=== PATIENT | female | born 1945 | race Caucasian/White ===

== ENCOUNTER 2019-08-23 10:00 | Inpatient (IN) | payer OTHER ==
[~2019-08-23] VITALS: Ht 162.6 cm; Wt 61.2 kg
[~2019-08-23 10:00] MED LIST: CHILDREN'S ASPI81 MG PO; CRESTOR20 MG; FOSAMAX70 MG
[2019-08-27] MEDS ORDERED: PANTOPRAZOLE SO40 MG PO (10:37)
[2019-08-30] MEDS ORDERED: INTESTINEX680 M1 PO (16:22)
[2019-08-30] MEDS ORDERED: PERCOCET 5-3251 EACH PO (16:22)
[2019-08-30] MEDS ORDERED: PRILOSEC OTC20 MG PO (16:22)
== END 2019-08-30 17:47 | disposition home or self-care (01) | DRG 331 ==
LOC: O/R 08-26 10:00 → SURH 08-27 07:00 → O/R 08-27 07:00 → SURH 08-27 15:40
PROVIDERS: ADMIT Surgery
PROC: 07TB4ZZ Resection of Mesenteric Lymphatic, Percutaneous Endoscopic Approach (ICD-10-PCS; 2019-08-27)
PROC: 0DTF4ZZ Resection of Right Large Intestine, Percutaneous Endoscopic Approach (ICD-10-PCS; principal; 2019-08-27 13:00)
DX: D12.2 Benign neoplasm of ascending colon (principal); D17.5 Benign lipomatous neoplasm of intra-abdominal organs

== ENCOUNTER 2019-08-26 07:05 | Day surgery (SDC) | payer OTHER ==
[2019-08-27] MEDS ORDERED: PANTOPRAZOLE SO40 MG PO (10:37)
== END 2019-08-26 13:50 | disposition home or self-care (01) ==
LOC: AMB-ENDOS 07:05
DX: C18.4 Malignant neoplasm of transverse colon (principal); K64.0 First degree hemorrhoids